=== PATIENT | male | born 1960 | race Caucasian/White ===

== ENCOUNTER 2017-07-17 18:15 | Observation (INO) | payer SELFPAY ==
[2017-07-17] MEDS ORDERED: BABY ASPIRIN 81 MG CHEW PO ONE (18:29)
--- NOTE | 2017-07-17 18:32 | ERPHSYRPT ---
<JUWAN CERVANTES - Last Filed: 07/17/17 18:33> - History of Present Illness Time Seen by Provider: 07/17/17 18:30 Historian: patient Patient Subjective Stated Complaint: pain in left upper chest that felt like a muscle spasm Triage Nursing Assessment: Pt A&O x3, stated that he had pain in his left upper chest, lungs clear, normal sinus rhythm, no edema, pulses normal, vitals wnl, denies pain at this time, afebrile, Physician History: mild to mod off and on left chest pain pressure today, gone now, nonrad, + shortness of breath, no fever, speech fluent Allergies/Adverse Reactions: No Known Drug Allergies Allergy (Verified 07/17/17 18:28) Home Medications: Lisinopril [Zestril] 1.25 mg PO UD PRN 07/17/17 [History] Hx Tetanus, Diphtheria Vaccination/Date Given: Yes (up to date) Hx Influenza Vaccination/Date Given: No Hx Pneumococcal Vaccination/Date Given: No - Review of Systems Constitutional: No Fever Eyes: No Eye Redness Ears, Nose, & Throat: No Symptoms Respiratory: Dyspnea Cardiac: Chest Pain Abdominal/Gastrointestinal: No Abdominal Pain Musculoskeletal: No Back Pain Skin: No Rash Neurological: No Dizziness - Past Medical History Pertinent Past Medical History: Yes Cardiac History: Hypertension GI Medical History: GERD, Other History: No Pertinent History Psycho-Social History: No Pertinent History Male Reproductive Disorders: No Pertinent History - Past Surgical History Past Surgical History: Yes Gastrointestinal: Cholecystectomy Musculoskeletal: Orthopedic Surgery - Social History Smoking Status: Never smoker Exposure to second hand smoke: No Drug Use: none Patient Lives Alone: No - Nursing Vital Signs Nursing Vital Signs: Initial Vital Signs Temperature 98.4 F 07/17/17 18:17 Pulse Rate 79 07/17/17 18:17 Blood Pressure 135/87 07/17/17 18:17 O2 Sat by Pulse Oximetry 95 07/17/17 18:17 Pain Scale Pain Intensity 0 - Physical Exam General Appearance: no apparent distress Eye Exam: PERRL/EOMI Ears, Nose, Throat Exam: normal ENT inspection Neck Exam: normal inspection Respiratory Exam: normal breath sounds, lungs clear, No chest tenderness Cardiovascular Exam: regular rate/rhythm Gastrointestinal/Abdomen Exam: soft, No tenderness Extremity Exam: normal inspection, No swelling Neurologic Exam: alert, oriented x 3, cooperative Skin Exam: normal color, warm, dry SpO2 Interpretation: normal SpO2: 95 Oxygen Delivery: Room Air Ordered Tests: Active Orders 24 hr Category Date Time Status Paint Line Supervisor STAT Care 07/17/17 18:29 Active EKG-ER Only STAT Care 07/17/17 18:29 Active IV Insertion STAT Care 07/17/17 18:29 Active CHEST 1 VIEW (PORTABLE) Stat Exams 07/17/17 18:53 Taken CBC W DIFF Stat Lab 07/17/17 18:30 Completed CMP Stat Lab 07/17/17 18:30 Completed D-DIMER QUANTITATION Stat Lab 07/17/17 18:30 Completed NT PRO BNP Stat Lab 07/17/17 18:30 Completed PROTIME WITH INR Stat Lab 07/17/17 18:30 Completed TROPONIN Q3H Lab 07/17/17 18:30 Completed TROPONIN Q3H Lab 07/17/17 21:30 Ordered TROPONIN Q3H Lab 07/18/17 00:30 Ordered TROPONIN Q3H Lab 07/18/17 03:30 Ordered TROPONIN Q3H Lab 07/18/17 06:30 Ordered Medication Summary Discontinued Medications Generic Name Dose Route Start Last Admin Trade Name Freq PRN Reason Stop Dose Admin Aspirin 324 mg 07/17/17 18:29 07/17/17 18:34 Baby Aspirin 81 Mg Chew PO 07/17/17 18:30 324 mg STAT ONE Administration Aspirin Confirm 07/17/17 18:35 Baby Aspirin 81 Mg Chew Administered 07/17/17 18:36 Dose 324 mg .ROUTE .STSureDone-MED ONE Lab/Rad Data: Laboratory Result Diagrams 07/17/17 18:30 07/17/17 18:30 Laboratory Results 07/17/17 07/17/17 07/17/17 Range/Units 18:30 18:30 18:30 WBC (4.0-10.5) K/mm3 RBC (4.1-5.6) M/mm3 Hgb (12.5-18.0) gm/dl Hct (42-50) % MCV (78-100) fl MCH (26-32) pg MCHC (32-36) g/dl RDW (11.5-14.0) % Plt Count (150-450) K/mm3 MPV (6-9.5) fl Gran % (36.0-66.0) % Eos # (Auto) (0-0.5) Absolute Lymphs (auto) (1.0-4.6) Absolute Monos (auto) (0.0-1.3) Lymphocytes % (24.0-44.0) % Monocytes % (0.0-12.0) % Eosinophils % (0.00-5.0) % Basophils % (0.0-0.4) % Absolute Granulocytes (1.4-6.9) Basophils # (0-0.4) PT 12.4 (8.83-12.87) SECONDS INR 1.07 (0.8-3.0) D-Dimer < 215 L (215-500) ng/mL Sodium 142 (137-145) mmol/L Potassium 3.8 (3.5-5.1) mmol/L Chloride 107 (98-107) mmol/L Carbon Dioxide 26 (22-30) mmol/L Anion Gap 13.2 (5-15) MEQ/L BUN 15 (9-20) mg/dL Creatinine 0.91 (0.66-1.25) mg/dL Estimated GFR > 60.0 ML/MIN Glucose 102 (74-106) mg/dL Calcium 9.1 (8.4-10.2) mg/dL Total Bilirubin 0.60 (0.2-1.3) mg/dL AST 32 (17-59) U/L ALT 40 (0-50) U/L Alkaline Phosphatase 57 (38-126) U/L Troponin I < 0.012 (0.000-0.034) ng/mL NT-Pro-B Natriuret Pep 66.4 (0-900) pg/mL Serum Total Protein 7.2 (6.3-8.2) g/dL Albumin 4.0 (3.5-5.0) g/dL 07/17/17 Range/Units 18:30 WBC 6.5 (4.0-10.5) K/mm3 RBC 4.83 (4.1-5.6) M/mm3 Hgb 14.9 (12.5-18.0) gm/dl Hct 43.2 (42-50) % MCV 89.4 (78-100) fl MCH 30.8 (26-32) pg MCHC 34.5 (32-36) g/dl RDW 12.8 (11.5-14.0) % Plt Count 174 (150-450) K/mm3 MPV 9.9 H (6-9.5) fl Gran % 63.3 (36.0-66.0) % Eos # (Auto) 0.09 (0-0.5) Absolute Lymphs (auto) 1.79 (1.0-4.6) Absolute Monos (auto) 0.49 (0.0-1.3) Lymphocytes % 27.5 (24.0-44.0) % Monocytes % 7.5 (0.0-12.0) % Eosinophils % 1.4 (0.00-5.0) % Basophils % 0.3 (0.0-0.4) % Absolute Granulocytes 4.11 (1.4-6.9) Basophils # 0.02 (0-0.4) PT (8.83-12.87) SECONDS INR (0.8-3.0) D-Dimer (215-500) ng/mL Sodium (137-145) mmol/L Potassium (3.5-5.1) mmol/L Chloride (98-107) mmol/L Carbon Dioxide (22-30) mmol/L Anion Gap (5-15) MEQ/L BUN (9-20) mg/dL Creatinine (0.66-1.25) mg/dL Estimated GFR ML/MIN Glucose (74-106) mg/dL Calcium (8.4-10.2) mg/dL Total Bilirubin (0.2-1.3) mg/dL AST (17-59) U/L ALT (0-50) U/L Alkaline Phosphatase (38-126) U/L Troponin I (0.000-0.034) ng/mL NT-Pro-B Natriuret Pep (0-900) pg/mL Serum Total Protein (6.3-8.2) g/dL Albumin (3.5-5.0) g/dL - Progress Progress Note: 07/17/17 18:[address] Welch at 19:00 - Departure Clinical Impression: Chest pain Condition: Stable Referrals: DARNELL SINGH [CONSULTING PHYSICIAN] - <LAURA WELCH - Last Filed: 07/17/17 19:40> - History of Present Illness Timing/Duration: today Activities at Onset: rest Quality: pressure Location: substernal Severity of Pain-Max: moderate Severity of Pain-Current: none Modifying Factors: Improves With: nothing Associated Symptoms: denies symptoms Prior Chest Pain/Cardiac Workup: no prior chest pain Nitro Today/Relief: no nitro taken today Aspirin Treatment Today: 81 mg x 4, provided by ED - Radiology Exams Chest X-ray Interpretation: Interpreted by me, Negative - Progress Progress: improved Air Movement: good Progress Note: 07/17/17 19:15 Pt care discussed and care accepted from Dr Cervantes at 19:00. Blood Culture(s) Obtained: No Antibiotics given: No Discussed with : Dylan Will see patient in: hospital (observation) Counseled pt/family regarding: lab results, diagnosis, rad results - Departure Time of Disposition: 19:36 Departure Disposition: Observation (per Dr Richardson) Critical Care Time: No
[2017-07-17] MEDS ORDERED: BABY ASPIRIN 81 MG CHEW ONE (18:35)
[2017-07-17 18:45] LABS: BASOPHIL % 0.3 % (0.0-0.4); Basophil (Absolute #) 0.02 (0-0.4); Eosinophil % 1.4 % (0.00-5.0); Eosinophil (Absolute #) 0.09 (0-0.5); Granulocyte Absolute (ANC) 4.11 (1.4-6.9); Granulocytes % 63.3 % (36.0-66.0); Hematocrit 43.2 % (42-50); Hemoglobin 14.9 gm/dl (12.5-18.0); Lymphocyte (Absolute #) 1.79 (1.0-4.6); Lymphocytes % 27.5 % (24.0-44.0); Mean Cell Volume 89.4 fl (78-100); Mean Corpuscular Hemoglobin 30.8 pg (26-32); Mean Corpuscular Hgb Concent. 34.5 g/dl (32-36); Mean Platelet Volume 9.9 fl (6-9.5); Monocyte (Absolute #) 0.49 (0.0-1.3); Monocytes % 7.5 % (0.0-12.0); Platelet Count 174 K/mm3 (150-450); Red Blood Count 4.83 M/mm3 (4.1-5.6); Red Cell Distribution Width 12.8 % (11.5-14.0); White Blood Count 6.5 K/mm3 (4.0-10.5)
[2017-07-17 18:50] LABS: INR 1.07 (0.8-3.0)
[2017-07-17 18:54] LABS: D-DIMER QUANTITATION < 215 ng/mL (215-500)
[2017-07-17 18:55] LABS: ALKALINE PHOSPHATASE 57 U/L (38-126); ANION GAP 13.2 MEQ/L (5-15); BLOOD UREA NITROGEN 15 mg/dL (9-20); CHLORIDE 107 mmol/L (98-107); Calcium 9.1 mg/dL (8.4-10.2); Carbon Dioxide 26 mmol/L (22-30); Creatinine 1 0.91 mg/dL (0.66-1.25); Glucose 102 mg/dL (74-106); Potassium 3.8 mmol/L (3.5-5.1); SGOT/AST 32 U/L (17-59); SGPT/ALT 40 U/L (0-50); SODIUM 142 mmol/L (137-145); Total Protein 7.2 g/dL (6.3-8.2)
[2017-07-17 19:04] LABS: NT PRO BNP 66.4 pg/mL (0-900)
[2017-07-17] MEDS ORDERED: TYLENOL 325 MG PO PRN (20:09)
[2017-07-17] MEDS ORDERED: Zofran 4 MG/2 ML VIAL IV PRN (20:09)
[2017-07-17] MEDS ORDERED: MAALOX ES 30 ML UNIT DOSE PO PRN (20:09)
[2017-07-17] MEDS ORDERED: MILK OF MAGNESIA 30 ML PO PRN (20:09)
[2017-07-17] MEDS ORDERED: Senokot-S Tablet PO PRN (20:09)
[2017-07-18 07:03] VITALS: BP 152/65; PULSE 55; O2SAT 95
--- NOTE | 2017-07-18 08:38 | XRAY ---
Indication: Chest pain. Comparison: November 11, 2013. Portable apical lordotic chest less inflated and remains clear again with a few incidental calcified granulomas. Heart is not enlarged. Bony thorax intact again with minimal degenerative changes and old proximal left humeral fracture. Impression: Nonacute chest with chronic features.
[2017-07-18] MEDS ORDERED: LISINOPRIL 1.25 MG PO PRN (08:47)
--- NOTE | 2017-07-18 08:50 | PCM.SSS ---
History of Present Illness - Chief Complaint Chief Complaint: Chest Pain History of Present Illness: is a 57 year old male with no local MD who presented to ER with CP. He was sitting outside and started feeling a cramp/pressure in L chest, 8/ 10, non radiating, with no associated diaphoresis, nausea, SOB, or palpitations. The pain resolved by the time he got to the ER. Has a hx cardiac workup and sees Dr. Esquivel for recurrent sx of hypotension when active after a large meal. Pt has never been a smoker. He is unsure of any family hx because he is adopted. - Review of Systems Cardiac: Chest Pain Abdominal/Gastrointestinal: Diarrhea (recurrent) Musculoskeletal: Injury (RLE pain from injury years ago) Neurological: Dizziness (chronic recurrent after large meal with activity) Psychological: No Anxiety, No Depression, No Suicidal Ideations All Other Systems: Reviewed and Negative Medications & Allergies Home Medications: Home Medication List Lisinopril [Zestril] 1.25 mg PO UD PRN 07/17/17 [History Confirmed 07/17/17] Allergies/Adverse Reactions: Allergies Allergy/AdvReac Type Severity Reaction Status Date / Time No Known Drug Allergies Allergy Verified 07/17/17 18:28 - Past Medical History Past Medical History: Yes Neurological History: No Pertinent History ENT History: No Pertinent History Cardiac History: Hypertension Respiratory History: No Pertinent History Endocrine Medical History: No Pertinent History Musculoskelatal History: Other GI Medical History: GERD, Other History: No Pertinent History Pyscho-Social History: No Pertinent History Male Reproductive Disorders: No Pertinent History Comment: chronic pain from old injury - Past Surgical History Past Surgical History: Yes Neuro Surgical History: No Pertinent History Cardiac History: No Pertinent History Respiratory Surgery: No Pertinent History GI Surgical History: Cholecystectomy Genitourinary Surgical Hx: No Pertinent History Musculskeletal Surgical Hx: Orthopedic Surgery Male Surgical History: No Pertinent History Other Surgical History: left shoulder and left knee surgery - Social History Smoking Status: Never smoker Exposure to second hand smoke: No Alcohol: None Drug Use: none - Physical Exam Vital Signs: Vital Signs - 24 hr Temp Pulse Resp BP Pulse Ox 07/18/17 07:02 97.8 F 55 L 18 152/65 95 07/18/17 04:00 97.8 F 52 L 12 135/79 96 07/18/17 00:00 98.4 F 56 L 18 119/66 95 07/17/17 21:21 98.1 F 54 L 16 138/83 97 07/17/17 18:35 95 07/17/17 18:17 98.4 F 79 135/87 95 General Appearance: no apparent distress, alert, obese Neurologic Exam: oriented x 3, cooperative Eye Exam: eyes nml inspection Ears, Nose, Throat Exam: moist mucous membranes Neck Exam: normal inspection, non-tender, No lymphadenopathy Respiratory Exam: normal breath sounds, lungs clear, No crackles/rales, No rhonchi, No wheezing Cardiovascular Exam: regular rate/rhythm, normal heart sounds, No murmur Gastrointestinal/Abdomen Exam: soft, normal bowel sounds, No tenderness, No distention, No mass, No guarding, No rebound Back Exam: normal inspection, No rash Extremity Exam: normal inspection, No pedal edema, No swelling Skin Exam: normal color, warm, dry, No rash Results - Labs Lab/Micro Results: Lab Results-Last 24 Hours 07/17/17 07/18/17 07/18/17 Range/Units 21:40 01:00 03:55 Troponin I < 0.012 < 0.012 < 0.012 (0.000-0.034) ng/mL Triglycerides (30-150) mg/dL Cholesterol (50-200) mg/dL LDL Cholesterol (30-100) mg/dL HDL Cholesterol (40-60) mg/dL Heart Disease Risk Ratio 07/18/17 07/18/17 Range/Units 03:55 06:40 Troponin I < 0.012 (0.000-0.034) ng/mL Triglycerides 176 H (30-150) mg/dL Cholesterol 149 (50-200) mg/dL LDL Cholesterol 83 (30-100) mg/dL HDL Cholesterol 30 L (40-60) mg/dL Heart Disease Risk Ratio 5.0 - Other Procedures and Tests Respiratory Therapy 07/19/17 05:00 EKG DAILY 07/20/17 05:00 EKG DAILY 07/21/17 05:00 EKG DAILY Assessment/Plan (1) Chest pain Current Visit: Yes Status: Acute Qualifiers: Chest pain type: chest pain on breathing Qualified Code(s): R07.1 - Chest pain on breathing; R07.81 - Pleurodynia Assessment & Plan: Ruled out for MD wiht neg troponins x 5. Will schedule outpatient cardiolyte lexiscan (as pt has injury of lower extermity, cannot do treadmill). Code(s): R07.9 - CHEST PAIN, UNSPECIFIED (2) Hypertension Current Visit: Yes Status: Acute Qualifiers: Hypertension type: essential hypertension Qualified Code(s): I10 - Essential (primary) hypertension Assessment & Plan: treated with 1/4 pill of 2.5mg lisinopril by Dr. Esquivel; any more and he gets more hypotensive after eating. Code(s): I10 - ESSENTIAL (PRIMARY) HYPERTENSION (3) Leg injury Current Visit: Yes Status: Acute Qualifiers: Encounter type: subsequent encounter Laterality: left Qualified Code(s): S89.92XD - Unspecified injury of left lower leg, subsequent encounter Assessment & Plan: L leg, remote injury from when a building fell on him. Code(s): S89.90XA - UNSPECIFIED INJURY OF UNSPECIFIED LOWER LEG, [facility] Summary - Hospital Course Hospital Course: Pt is 57 yo male with no local MD admitted through ER with CP. MD ruled out wiht 5 negative troponins. EKG no acute changes, NSR. Will f/u with outpatient stress test, lexiscan cardiolyte. Will f/u with Dr. Martin outpatient. - Vitals & Intake/Output Vital Signs: Vital Signs Temperature 97.8 F 07/18/17 07:02 Pulse Rate 55 L 07/18/17 07:02 Respiratory Rate 18 07/18/17 07:02 Blood Pressure 152/65 07/18/17 07:02 O2 Sat by Pulse Oximetry 95 07/18/17 07:02 Intake & Output: Intake & Output 07/15/17 07/16/17 07/17/17 07/18/17 11:59 11:59 11:59 11:59 Intake Total 1320 Balance 1320 Weight 125.9 kg - Lab Result Diagrams: 07/17/17 18:30 07/17/17 18:30 Lab Results-Last 24 Hrs: Lab Results-Last 24 Hours 07/17/17 07/18/17 07/18/17 Range/Units 21:40 01:00 03:55 Troponin I < 0.012 < 0.012 < 0.012 (0.000-0.034) ng/mL Triglycerides (30-150) mg/dL Cholesterol (50-200) mg/dL LDL Cholesterol (30-100) mg/dL HDL Cholesterol (40-60) mg/dL Heart Disease Risk Ratio 07/18/17 07/18/17 Range/Units 03:55 06:40 Troponin I < 0.012 (0.000-0.034) ng/mL Triglycerides 176 H (30-150) mg/dL Cholesterol 149 (50-200) mg/dL LDL Cholesterol 83 (30-100) mg/dL HDL Cholesterol 30 L (40-60) mg/dL Heart Disease Risk Ratio 5.0 - Procedures and Test Procedures and Tests throughout Hospitalization: Therapy Orders & Screens 07/18/17 02:19 EKG ROUTINE Comment: Diagnosis: chest pain 07/19/17 05:00 EKG DAILY Comment: Diagnosis: chest pain 07/20/17 05:00 EKG DAILY Comment: Diagnosis: chest pain 07/21/17 05:00 EKG DAILY Comment: Diagnosis: chest pain - Discharge Disposition: Home, Self-Care Condition: Good Prescriptions: Continue Lisinopril [Zestril] 1.25 mg PO UD PRN PRN Reason: Hypertension Follow up with: MARY MARTIN MD [ACTIVE STAFF] - 07/26/17 1:45 pm
[2017-07-18] MEDS ORDERED: MEDICATION INTERVENTION MC SCH (09:00)
[2017-07-18] MEDS ORDERED: Ecotrin 325 MG PO SCH (10:00)
== END 2017-07-18 09:55 | disposition home or self-care (01) ==
LOC: ED 18:15 → MED SURG 20:01
PROVIDERS: ADMIT Family Medicine; ATTEND Family Medicine
DX: R07.1 Chest pain on breathing (principal); I10 Essential (primary) hypertension; S89.92XD Unspecified injury of left lower leg, subsequent encounter
CPT/HCPCS: 36000; 36415; 71045; 80053; 80061; 83721; 83880; 84484; 85025; 85379; 85610; 93005; 93041; 93268; 99285; A9270-GY; G0378

== ENCOUNTER 2020-08-11 12:24 | Emergency (ER) | payer SELFPAY ==
[2020-08-11 12:43] VITALS: O2SAT 97
--- NOTE | 2020-08-11 13:26 | ERPHSYRPT ---
- History of Present Illness Time Seen by Provider: 08/11/20 12:26 Source: patient Exam Limitations: no limitations Patient Subjective Stated Complaint: to er c/o high bp x24 hours states he is taking bp at home with wrist bp monitor. 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 Patient report he was working outside in the yard and felt little weak yesterday and noticed his blood pressure was elevated. This morning he woke up and is feeling much better at his baseline but his blood pressure is consistently higher. Denies any headache, blurry vision, chest pain palpitations or shortness of breath. No abdominal pain nausea or vomiting. Denies any focal numbness tingling or weakness. On arrival his blood pressure is in 120s systolic while his machine is reading 220s. Timing/Duration: day(s) (1), constant, worse Severity: moderate Modifying Factors: Worsens With: movement Associated Symptoms: denies symptoms Allergies/Adverse Reactions: No Known Drug Allergies Allergy (Verified 08/11/20 12:43) Home Medications: Hydralazine HCl 10 mg PO UD PRN 08/11/20 [History] Metformin HCl 500 mg [Glucophage 500 MG] 500 mg PO BIDWM 08/11/20 [ History] Phentermine HCl 37.5 mg PO DAILY 08/11/20 [History] Hx Tetanus, Diphtheria Vaccination/Date Given: Yes (up to date) Hx Influenza Vaccination/Date Given: No Hx Pneumococcal Vaccination/Date Given: No Travel Risk - International Travel Have you traveled outside of the country in past 3 weeks: No - Coronavirus Screening Are you exhibiting any of the following symptoms?: No Close contact with a COVID-19 positive Pt in past 14-21 Days: No - Vaccine Status Have you recieved a Covid-19 vaccination: No - Review of Systems Constitutional: No Symptoms Eyes: No Symptoms Ears, Nose, & Throat: No Symptoms Respiratory: No Symptoms Cardiac: No Symptoms Abdominal/Gastrointestinal: No Symptoms Genitourinary Symptoms: No Symptoms Musculoskeletal: No Symptoms Skin: No Symptoms Neurological: No Symptoms Psychological: No Symptoms Hematologic/Lymphatic: No Symptoms Immunological/Allergic: No Symptoms - Past Medical History Pertinent Past Medical History: Yes Neurological History: No Pertinent History, Other ENT History: No Pertinent History Cardiac History: Hypertension Respiratory History: No Pertinent History Endocrine Medical History: No Pertinent History Musculoskeletal History: Other GI Medical History: GERD, Other History: No Pertinent History Psycho-Social History: No Pertinent History Male Reproductive Disorders: No Pertinent History Other Medical History: Pure autonomic failure sees [facility] - Past Surgical History Past Surgical History: Yes Neuro Surgical History: No Pertinent History Cardiac: No Pertinent History Respiratory: No Pertinent History Gastrointestinal: Cholecystectomy Genitourinary: No Pertinent History Musculoskeletal: Orthopedic Surgery Male Surgical History: No Pertinent History Other Surgical History: left shoulder and left knee surgery - Social History Smoking Status: Never smoker Exposure to second hand smoke: No Drug Use: none Patient Lives Alone: No - Nursing Vital Signs Nursing Vital Signs: Initial Vital Signs Temperature 98.2 F 08/11/20 12:34 Pulse Rate 85 08/11/20 12:34 Respiratory Rate 16 08/11/20 12:34 Blood Pressure 123/75 08/11/20 12:34 O2 Sat by Pulse Oximetry 97 08/11/20 12:34 - Physical Exam General Appearance: no apparent distress, alert Eye Exam: PERRL/EOMI Ears, Nose, Throat Exam: normal ENT inspection, TMs normal, pharynx normal Neck Exam: normal inspection, non-tender, supple, full range of motion Respiratory Exam: normal breath sounds, lungs clear Cardiovascular Exam: regular rate/rhythm, normal heart sounds Gastrointestinal/Abdomen Exam: soft, normal bowel sounds, No tenderness Back Exam: normal inspection, normal range of motion Extremity Exam: normal inspection, normal range of motion Neurologic Exam: alert, oriented x 3, cooperative, insurance broker II-XII nml as tested, normal mood/affect, nml cerebellar function, nml station & gait, sensation nml, No motor deficits, No sensory deficit Skin Exam: normal color SpO2 Interpretation: normal SpO2: 97 O2 Delivery: Room Air - Progress Progress: improved Progress Note: 08/11/20 13:26 Patient blood pressure is in 140s and 130s on my evaluation and with his machine recheck it is in 220s. I believe it a mechanical error because of machine malfunctioning. Patient is asymptomatic. I offered him baseline work-up but he feels to his baseline. And has no signs of endorgan damage. He is being discharged with outpatient follow-up. Discussed signs symptoms of worsening needing return to ER which he seems understanding. Counseled pt/family regarding: diagnosis, need for follow-up - Departure Departure Disposition: Home Clinical Impression: Pure autonomic failure, No problem, feared complaint unfounded Condition: Stable Critical Care Time: No Referrals: SHEA BURTON [Primary Care Provider] - Follow Up with PCP/3 days BRONSON BRADY [ACTIVE STAFF] - Follow Up with PCP/3 days Instructions: High Blood Pressure (DC) Additional Instructions: Monitor your blood pressure regularly, keep a log and follow-up with primary care for reevaluation. Return to ER for persistent high blood pressure or if you have a headache, dizziness lightheadedness, blurry vision, chest pain palpitations shortness of breath etc.
[2020-08-11 13:30] VITALS: BP 138/94; PULSE 69
== END 2020-08-11 13:35 | disposition home or self-care (01) ==
LOC: ED 12:24
DX: G90.3 Multi-system degeneration of the autonomic nervous system (principal)
CPT/HCPCS: 99283

== ENCOUNTER 2022-11-01 06:02 | Day surgery (SDC) | payer SELFPAY ==
[~2022-11-01 06:02] MED LIST: Lactated Ringers 1,000 ML IV SCH
[2022-11-01] MEDS ORDERED: DIPRIVAN 200 MG/20 ML IV ONE ×2 (06:50→07:19)
[2022-11-01] MEDS ORDERED: ATROPINE SULFATE 1MG ONE (07:02)
[2022-11-01] MEDS ORDERED: Lactated Ringers 1,000 ML IV ONE (07:24)
[2022-11-01 07:30] VITALS: RESP 18
[2022-11-01 07:37] VITALS: O2SAT 97
[2022-11-01 07:44] VITALS: BP 134/92; PULSE 62; TEMP 97.9
--- NOTE | 2022-11-01 14:44 | OP ---
SURGERY DATE/TIME: 11/01/2022 0700 PREOPERATIVE DIAGNOSIS: Screening exam. POSTOPERATIVE DIAGNOSIS: Small polyp in the hepatic flexure. PROCEDURE: Colonoscopy with cold forceps biopsy. SURGEON: Dr. Rosado. ANESTHESIA: Medications given by anesthesia department. HISTORY: The patient is a 62-year-old white male patient presenting now for endoscopic evaluation. The patient was described the risks of the procedure including the risk of perforation, phlebitis, untoward reaction to medication, bleeding and missed lesions. The patient verbalized his understanding and desired to have the procedure performed. DESCRIPTION OF PROCEDURE: The patient was given the medications by the anesthesia department. He had continuous pulse oximetry, ECG monitoring and intermittent blood pressure monitoring during the examination. He was placed in the left lateral decubitus position. A digital rectal examination was performed and revealed normal anal sphincter tone and no masses. The flexible Olympus pediatric colonoscope was used to intubate the rectum. A view of the colon was developed sequentially to the cecum. Upon insertion and withdrawal, including a retroflex view in the rectum was noted a small polyp in the hepatic flexure which was removed using multiple passes of the cold forceps biopsy instrument. No other mucosal lesions being encountered the scope was removed from the patient who tolerated the procedure well and was sent back to OP recovery in good condition. The prep was noted to be fair to good.
== END 2022-11-01 07:50 | disposition home or self-care (01) ==
LOC: SDC 06:02
PROVIDERS: ATTEND Family Medicine
DX: Z12.11 Encounter for screening for malignant neoplasm of colon (principal); D12.3 Benign neoplasm of transverse colon; E11.9 Type 2 diabetes mellitus without complications
CPT/HCPCS: 82947; 93005; J0461; J2704

== ENCOUNTER 2023-06-13 19:43 | Observation (INO) | payer SELFPAY ==
[2023-06-13 20:16] LABS: Absolute Neutrophil Ct (ANC) 3.99 x10^3/uL (1.4-6.9); BASOPHIL % 0.3 % (0.0-0.4); Basophil (Absolute #) 0.02 x10^3/uL (0-0.4); Eosinophil % 2.1 % (0.00-5.0); Eosinophil (Absolute #) 0.13 x10^3/uL (0-0.5); Hematocrit 41.6 % (42-50); Hemoglobin 14.4 g/dL (12.5-18.0); IMMATURE GRAN # 0.03 x10^3u/L (0.00-0.03); IMMATURE GRAN % 0.5 % (0.00-0.4); Lymphocyte (Absolute #) 1.72 x10^3/uL (1.0-4.6); Lymphocytes % 27.4 % (24.0-44.0); Mean Cell Volume 88.9 fL (78-100); Mean Corpuscular Hemoglobin 30.8 pg (26-32); Mean Corpuscular Hgb Concent. 34.6 g/dL (32-36); Mean Platelet Volume 9.6 fL (7.5-11.0); Monocyte (Absolute #) 0.39 x10^3/uL (0.0-1.3); Monocytes % 6.2 % (0.0-12.0); Neutrophil % 63.5 % (36.0-66.0); Platelet Count 155 x10^3/uL (150-450); Red Blood Count 4.68 x10^6/uL (4.1-5.6); Red Cell Distribution Width 12.2 % (11.5-14.0); White Blood Count 6.3 x10^3/uL (4.0-10.5)
--- NOTE | 2023-06-13 20:16 | ERPHSYRPT ---
- History of Present Illness Time Seen by Provider: 06/13/23 20:12 Historian: patient Exam Limitations: no limitations Patient Subjective Stated Complaint: chest pressure off and on x1 week, palpitations Triage Nursing Assessment: pt ambulated into ER room 9, at bedside. Pt is alert and oriented x4. Pt c/o chest pressure off and on x1 week and also had some palpitations. Lungs clear, heart tones reg, abd lg, obese with active bs x4 quad, nontender. Pt denies any chest pain or fluttering at this time but only c/o some heaviness to the chest. Physician History: 62-year-old male presents to our ED for evaluation of chest pressure and heart palpitations. Symptoms have been intermittent for approximately 1 week. No associated nausea vomiting or diaphoresis. Patient advises that he has a past medical history significant for PAF, pure autonomic failure. Patient reports this is a progressive neurologic condition that affects his ability to autoregulate his blood pressure distress. This was reportedly diagnosed in 2018 at the [facility]. Patient reports he has is cholesterol checked regularly. Portions of this note were created with voice recognition technology. There may be grammatical, spelling, punctuation or sound alike errors Timing/Duration: today Activities at Onset: none Quality: pressure Location: substernal Chest Pain Radiation: no radiation Severity of Pain-Max: moderate Severity of Pain-Current: moderate Modifying Factors: Improves With: nothing Associated Symptoms: denies symptoms Prior Chest Pain/Cardiac Workup: no prior chest pain Nitro Today/Relief: no nitro taken today Aspirin Treatment Today: no aspirin today Allergies/Adverse Reactions: No Known Drug Allergies Allergy (Verified 11/01/22 06:20) Home Medications: Droxidopa [Northera] 300 mg PO TID 10/25/22 [History] Hx Tetanus, Diphtheria Vaccination/Date Given: Yes Hx Influenza Vaccination/Date Given: No Hx Pneumococcal Vaccination/Date Given: No Travel Risk - International Travel Have you traveled outside of the country in past 3 weeks: No - Emerging Infectious Disease Are you exhibiting symptoms associated with any current EIDs: No - Review of Systems Constitutional: No Symptoms, No Fever, No Chills Eyes: No Symptoms Ears, Nose, & Throat: No Symptoms Respiratory: No Symptoms, No Cough, No Dyspnea Cardiac: No Symptoms, No Chest Pain, No Edema, No Syncope Abdominal/Gastrointestinal: No Symptoms, No Abdominal Pain, No Nausea, No Vomiting, No Diarrhea Genitourinary Symptoms: No Symptoms, No Dysuria Musculoskeletal: No Symptoms, No Back Pain, No Neck Pain Skin: No Symptoms, No Rash Neurological: No Symptoms, No Dizziness, No Focal Weakness, No Sensory Changes Psychological: No Symptoms Endocrine: No Symptoms Hematologic/Lymphatic: No Symptoms Immunological/Allergic: No Symptoms All Other Systems: Reviewed and Negative - Past Medical History Pertinent Past Medical History: Yes Neurological History: Other ENT History: No Pertinent History Cardiac History: Hypertension Respiratory History: Sleep Apnea Endocrine Medical History: No Pertinent History Musculoskeletal History: Other GI Medical History: GERD, Gallbladder Disease, Hernia, Other History: No Pertinent History Psycho-Social History: No Pertinent History Male Reproductive Disorders: No Pertinent History Other Medical History: Pure autonomic failure used to [facility] - Past Surgical History Past Surgical History: Yes Neuro Surgical History: No Pertinent History Cardiac: No Pertinent History Respiratory: No Pertinent History Gastrointestinal: Cholecystectomy Genitourinary: No Pertinent History Musculoskeletal: Orthopedic Surgery Male Surgical History: No Pertinent History Other Surgical History: left shoulder and left knee surgery - Social History Smoking Status: Never smoker Exposure to second hand smoke: No Drug Use: none Patient Lives Alone: No - Nursing Vital Signs Nursing Vital Signs: Initial Vital Signs Temperature 97.5 F 06/13/23 19:43 Pulse Rate 64 06/13/23 19:43 Respiratory Rate 20 06/13/23 19:43 Blood Pressure 190/104 06/13/23 19:43 O2 Sat by Pulse Oximetry 98 06/13/23 19:43 Pain Scale Pain Intensity 0 - Physical Exam General Appearance: no apparent distress, alert Eye Exam: PERRL/EOMI, eyes nml inspection Ears, Nose, Throat Exam: normal ENT inspection, moist mucous membranes Neck Exam: normal inspection, non-tender, supple, full range of motion Respiratory Exam: normal breath sounds, lungs clear, airway intact, No res piratory distress Cardiovascular Exam: regular rate/rhythm, normal heart sounds, normal peripheral pulses Gastrointestinal/Abdomen Exam: soft, No tenderness, No mass Back Exam: normal inspection, No CVA tenderness, No vertebral tenderness Extremity Exam: normal inspection, normal range of motion Neurologic Exam: alert, oriented x 3, cooperative, normal mood/affect, sensation nml, No motor deficits Skin Exam: normal color, warm, dry Lymphatic Exam: No adenopathy SpO2 Interpretation: normal SpO2: 98 O2 Delivery: Room Air - Course Nursing assessment & vital signs reviewed: Yes EKG Interpreted by Me: RATE (64), Sinus Rhythm, NORMAL AXIS, NORMAL INTERVALS - Radiology Exams Chest X-ray Interpretation: Interpreted by me (Nonacute chest with chronic features) Ordered Tests: Active Orders 24 hr Category Date Time Status Tool Dispatcher STAT Care 06/13/23 20:10 Active EKG-ER Only STAT Care 06/13/23 20:09 Active Pulse Oximetry (ED) STAT Care 06/13/23 20:09 Active CBC AM.LAB Lab 06/14/23 04:00 Ordered CBC W DIFF Stat Lab 06/13/23 20:00 Completed CMP AM.LAB Lab 06/14/23 04:00 Ordered CMP Stat Lab 06/13/23 20:00 Completed D-DIMER QUANTITATIVE Stat Lab 06/13/23 20:00 Completed NT PRO BNPII Stat Lab 06/13/23 20:00 Completed TROPONIN Q4H Lab 06/13/23 20:00 Completed TROPONIN Q4H Lab 06/14/23 04:15 Ordered TROPONIN Stat Lab 06/13/23 22:51 Completed UA W/RFX UR CULTURE Stat Lab 06/13/23 20:21 Completed Transfer Order Routine Transfer 06/13/23 Ordered Medication Summary Discontinued Medications Generic Name Dose Route Start Last Admin Trade Name Valenteq PRN Reason Stop Dose Admin Aspirin 324 mg 06/13/23 20:17 06/13/23 20:21 Aspirin 81 Mg Tab.Chew PO 06/13/23 20:18 324 mg STAT ONE Administration Aspirin Confirm 06/13/23 20:21 Aspirin 81 Mg Tab.Chew Administered 06/13/23 20:22 Dose 324 mg .ROUTE .STK-MED ONE Potassium Chloride 40 meq 06/13/23 20:54 06/13/23 20:55 Potassium Chloride Tab 10 Meq Tab PO 06/13/23 20:55 40 meq STAT ONE Administration Potassium Chloride Confirm 06/13/23 20:55 Potassium Chloride Tab 10 Meq Tab Administered 06/13/23 20:56 Dose 40 meq .ROUTE .STK-MED ONE Lab/Rad Data: Laboratory Result Diagrams 06/13/23 20:00 06/13/23 20:00 Laboratory Results 06/13/23 06/13/23 06/13/23 Range/Units 22:51 20:21 20:00 WBC (4.0-10.5) x10^3/uL RBC (4.1-5.6) x10^6/uL Hgb (12.5-18.0) g/dL Hct (42-50) % MCV (78-100) fL MCH (26-32) pg MCHC (32-36) g/dL RDW (11.5-14.0) % Plt Count (150-450) x10^3/uL MPV (7.5-11.0) fL Gran % (36.0-66.0) % Immature Gran % (Auto) (0.00-0.4) % Nucleat RBC Rel Count (0.00-0.1) % Eos # (Auto) (0-0.5) x10^3/uL Immature Gran # (Auto) (0.00-0.03) x10^3u/L Absolute Lymphs (auto) (1.0-4.6) x10^3/uL Absolute Monos (auto) (0.0-1.3) x10^3/uL Absolute Nucleated RBC (0.00-0.01) x10^3u/L Lymphocytes % (24.0-44.0) % Monocytes % (0.0-12.0) % Eosinophils % (0.00-5.0) % Basophils % (0.0-0.4) % Absolute Granulocytes (1.4-6.9) x10^3/uL Basophils # (0-0.4) x10^3/uL D-Dimer (0.0-0.50) mg/L Sodium (135-145) mmol/L Potassium (3.5-5.1) mmol/L Chloride (98-107) mmol/L Carbon Dioxide (22-30) mmol/L Anion Gap (5-15) MEQ/L BUN (9-20) mg/dL Creatinine (0.66-1.25) mg/dL Estimated GFR ML/MIN Glucose (74-106) mg/dL Calcium (8.4-10.2) mg/dL Total Bilirubin (0.2-1.3) mg/dL AST (17-59) U/L ALT (0-50) U/L Alkaline Phosphatase (38-126) U/L Troponin I < 0.012 < 0.012 (0.000-0.033) ng/mL NT-Pro-B Natriuret Pep (<300) pg/mL Serum Total Protein (6.3-8.2) g/dL Albumin (3.5-5.0) g/dL Urine Color Yellow (Yellow) Urine Appearance Clear (Clear) Urine pH 6.0 (4.6-8.0) Ur Specific [place] <=1.005 (1.005-1.030) Urine Protein Negative (Negative) Urine Glucose (UA) Negative (Negative) mg/dL Urine Ketones Negative (Negative) Urine Blood Trace (Negative) Urine Nitrite Negative (Negative) Urine Bilirubin Negative (Negative) Urine Urobilinogen 0.2 (0.2) mg/dL Ur Leukocyte Esterase Negative (Negative) U Hyaline Cast (Auto) NONE SEEN (0-2) /LPF Urine Microscopic RBC 0-2 (0-5) /HPF Urine Microscopic WBC 0-2 (0-5) /HPF Ur Epithelial Cells None Seen (None Seen) /HPF Urine Bacteria None Seen (None Seen) /HPF Urine Culture Reflexed NO (NO) 06/13/23 06/13/23 06/13/23 Range/Units 20:00 20:00 20:00 WBC 6.3 (4.0-10.5) x10^3/uL RBC 4.68 (4.1-5.6) x10^6/uL Hgb 14.4 (12.5-18.0) g/dL Hct 41.6 L (42-50) % MCV 88.9 (78-100) fL MCH 30.8 (26-32) pg MCHC 34.6 (32-36) g/dL RDW 12.2 (11.5-14.0) % Plt Count 155 (150-450) x10^3/uL MPV 9.6 (7.5-11.0) fL Gran % 63.5 (36.0-66.0) % Immature Gran % (Auto) 0.5 H (0.00-0.4) % Nucleat RBC Rel Count 0.0 (0.00-0.1) % Eos # (Auto) 0.13 (0-0.5) x10^3/uL Immature Gran # (Auto) 0.03 (0.00-0.03) x10^3u/L Absolute Lymphs (auto) 1.72 (1.0-4.6) x10^3/uL Absolute Monos (auto) 0.39 (0.0-1.3) x10^3/uL Absolute Nucleated RBC 0.00 (0.00-0.01) x10^3u/L Lymphocytes % 27.4 (24.0-44.0) % Monocytes % 6.2 (0.0-12.0) % Eosinophils % 2.1 (0.00-5.0) % Basophils % 0.3 (0.0-0.4) % Absolute Granulocytes 3.99 (1.4-6.9) x10^3/uL Basophils # 0.02 (0-0.4) x10^3/uL D-Dimer 0.24 (0.0-0.50) mg/L Sodium 138 (135-145) mmol/L Potassium 3.3 L (3.5-5.1) mmol/L Chloride 105 (98-107) mmol/L Carbon Dioxide 24 (22-30) mmol/L Anion Gap 12.7 (5-15) MEQ/L BUN 15 (9-20) mg/dL Creatinine 0.96 (0.66-1.25) mg/dL Estimated GFR 90.5 ML/MIN Glucose 153 H (74-106) mg/dL Calcium 8.8 (8.4-10.2) mg/dL Total Bilirubin 0.60 (0.2-1.3) mg/dL AST 23 (17-59) U/L ALT 25 (0-50) U/L Alkaline Phosphatase 48 (38-126) U/L Troponin I (0.000-0.033) ng/mL NT-Pro-B Natriuret Pep 149 (<300) pg/mL Serum Total Protein 6.9 (6.3-8.2) g/dL Albumin 3.7 (3.5-5.0) g/dL Urine Color (Yellow) Urine Appearance (Clear) Urine pH (4.6-8.0) Ur Specific [place] (1.005-1.030) Urine Protein (Negative) Urine Glucose (UA) (Negative) mg/dL Urine Ketones (Negative) Urine Blood (Negative) Urine Nitrite (Negative) Urine Bilirubin (Negative) Urine Urobilinogen (0.2) mg/dL Ur Leukocyte Esterase (Negative) U Hyaline Cast (Auto) (0-2) /LPF Urine Microscopic RBC (0-5) /HPF Urine Microscopic WBC (0-5) /HPF Ur Epithelial Cells (None Seen) /HPF Urine Bacteria (None Seen) /HPF Urine Culture Reflexed (NO) - Progress Progress: improved Air Movement: good Progress Note: 62-year-old male presents emergency department for evaluation of chest pressure. Patient's heart score is 4. Vital stable. Initial troponin negative. Patient will be admitted for further evaluation and treatment. Plan of care discussed with patient. He agrees to admission [facility] for further evaluation and treatment. Management discussed with Dr. Yao Hoyos who accepts admission to observation at 11:58 PM. Complexity problem addressed is moderate acute complicated. No critical care time. Complexity of data reviewed and analyzed is extensive. Test ordered test reviewed results analyzed and correlated clinically with history and physical examination. Management discussed with hospitalist accepts admission to observation. Risk of complication and or risk of morbidity/mortality of patient management is high. Patient requires hospitalization for further evaluation and treatment. Vital stable. Time spent to admit patient is approximately 15 minutes. Plan of care established for shared decision making. No social determinants of health present. Follow-up. Portions of this note were created with voice recognition technology. There may be grammatical, spelling, punctuation or sound alike errors 06/14/23 00:04 Blood Culture(s) Obtained: No Antibiotics given: No Counseled pt/family regarding: lab results, diagnosis, rad results - Departure Departure Disposition: Observation Clinical Impression: ACS (acute coronary syndrome), Hypokalemia Condition: Stable Critical Care Time: No
[2023-06-13] MEDS: BABY ASPIRIN 81 MG CHEW PO ONE (20:21)
[2023-06-13] MEDS ORDERED: BABY ASPIRIN 81 MG CHEW ONE (20:21)
[2023-06-13 20:34] LABS: Appearance Clear (Clear); Bacteria None Seen /HPF (None Seen); Bilirubin Negative (Negative); Blood Trace (Negative); Epithelial Cells None Seen /HPF (None Seen); Glucose, Urine Negative (Negative); Hyaline Casts NONE SEEN /LPF (0-2); Ketones Negative (Negative); Leukocyte Esterase Negative (Negative); Nitrite Negative (Negative); Protein,Urine Dip Negative (Negative); RBC 0-2 /HPF (0-5); Specific Gravity <=1.005 (1.005-1.030); Urobilinogen 0.2 mg/dL (0.2); WBC 0-2 /HPF (0-5)
[2023-06-13 20:40] LABS: ALBUMIN 3.7 g/dL (3.5-5.0); ANION GAP 12.7 MEQ/L (5-15); BILIRUBIN,TOTAL 0.6 mg/dL (0.2-1.3); Calcium 8.8 mg/dL (8.4-10.2); Creatinine 1 0.96 mg/dL (0.66-1.25); EST GLOMERULAR FILTRATION RATE 90.5 ML/MIN; Potassium 3.3 mmol/L (3.5-5.1); Total Protein 6.9 g/dL (6.3-8.2)
[2023-06-13 20:46] LABS: ADD URINE CULTURE? NO (NO)
[2023-06-13] MEDS: Klor Con PO ONE (20:55)
[2023-06-13] MEDS ORDERED: Klor Con ONE (20:55)
--- NOTE | 2023-06-13 23:56 | PCM.HP ---
History of Present Illness - Chief Complaint Chief Complaint: Chest pain History of Present Illness: is a 62 year old male who presents with chest pain that has been intermittent for about 1 week. Denies fevers, chills, nausea, vomiting, diarrhea. No abdominal pain. No current chest pain. Troponin negative x 2 in the ED. - Review of Systems Constitutional: No Fever, No Chills Eyes: No Symptoms Ears, Nose, & Throat: No Symptoms Respiratory: No Cough, No Short Of Breath Cardiac: No Chest Pain, No Edema, No Syncope Abdominal/Gastrointestinal: No Abdominal Pain, No Nausea, No Vomiting, No Diarrhea Genitourinary Symptoms: No Dysuria Musculoskeletal: No Back Pain, No Neck Pain Skin: No Rash Neurological: No Dizziness, No Focal Weakness, No Sensory Changes Psychological: No Symptoms Endocrine: No Symptoms Hematologic/Lymphatic: No Symptoms Immunological/Allergic: No Symptoms Medications & Allergies Home Medications: Home Medication List Droxidopa [Northera] 300 mg PO TID 10/25/22 [History Confirmed 06/13/23] Allergies/Adverse Reactions: Allergies Allergy/AdvReac Type Severity Reaction Status Date / Time No Known Drug Allergies Allergy Verified 11/01/22 06:20 - Past Medical History Past Medical History: Yes Neurological History: Other ENT History: No Pertinent History Cardiac History: Hypertension Respiratory History: Sleep Apnea Endocrine Medical History: No Pertinent History Musculoskelatal History: Other GI Medical History: GERD, Gallbladder Disease, Hernia, Other History: No Pertinent History Pyscho-Social History: No Pertinent History Male Reproductive Disorders: No Pertinent History Comment: Pure autonomic failure [facility] - Past Surgical History Past Surgical History: Yes Neuro Surgical History: No Pertinent History Cardiac History: No Pertinent History Respiratory Surgery: No Pertinent History GI Surgical History: Cholecystectomy Genitourinary Surgical Hx: No Pertinent History Musculskeletal Surgical Hx: Orthopedic Surgery Male Surgical History: No Pertinent History Other Surgical History: left shoulder and left knee surgery - Social History Smoking Status: Never smoker Exposure to second hand smoke: No Alcohol: None Drug Use: none - Social Determinants of Health Will the patient participate in the screening: Yes Do you worry about a steady place to live?: No Do you have any problems with any of the following?: No known problems In the past 12 months,have you had to go without utilities?: No Have you or anyone in your house had to go without enough: No Transportation Issues: No Has anyone in your support network made you feel unsafe?: No - Physical Exam Vital Signs: Vital Signs - 24 hr Temp Pulse Pulse Resp BP BP Pulse Ox 06/13/23 23:00 48 L 14 176/100 92 L 06/13/23 22:30 47 L 18 173/109 93 L 06/13/23 22:00 52 L 16 182/97 95 06/13/23 21:30 52 L 14 172/95 06/13/23 21:00 58 L 19 159/94 96 06/13/23 20:31 57 L 18 165/90 94 L 06/13/23 20:17 98 06/13/23 20:09 94 L 06/13/23 20:00 86 21 181/105 94 L 06/13/23 19:51 64 06/13/23 19:47 62 17 190/104 95 06/13/23 19:43 97.5 F 64 20 190/104 98 General Appearance: no apparent distress, alert Neurologic Exam: alert, oriented x 3, cooperative, normal mood/affect, nml cerebellar function, nml station & gait, sensation nml, No motor deficits Eye Exam: PERRL/EOMI, eyes nml inspection Ears, Nose, Throat Exam: normal ENT inspection, TMs normal, pharynx normal, moist mucous membranes Neck Exam: normal inspection, non-tender, supple, full range of motion Respiratory Exam: normal breath sounds, lungs clear, No respiratory distress Cardiovascular Exam: regular rate/rhythm, normal heart sounds, normal peripheral pulses Gastrointestinal/Abdomen Exam: soft, normal bowel sounds, No tenderness, No mass Back Exam: normal inspection, normal range of motion, No CVA tenderness, No ve rtebral tenderness Extremity Exam: normal inspection, normal range of motion, pelvis stable Skin Exam: normal color, warm, dry, No rash Lymphatic Exam: No adenopathy Results - Labs Lab/Micro Results: Lab Results-Last 24 Hours 06/13/23 06/13/23 06/13/23 Range/Units 20:00 20:00 20:00 WBC 6.3 (4.0-10.5) x10^3/uL RBC 4.68 (4.1-5.6) x10^6/uL Hgb 14.4 (12.5-18.0) g/dL Hct 41.6 L (42-50) % MCV 88.9 (78-100) fL MCH 30.8 (26-32) pg MCHC 34.6 (32-36) g/dL RDW 12.2 (11.5-14.0) % Plt Count 155 (150-450) x10^3/uL MPV 9.6 (7.5-11.0) fL Gran % 63.5 (36.0-66.0) % Immature Gran % (Auto) 0.5 H (0.00-0.4) % Nucleat RBC Rel Count 0.0 (0.00-0.1) % Eos # (Auto) 0.13 (0-0.5) x10^3/uL Immature Gran # (Auto) 0.03 (0.00-0.03) x10^3u/L Absolute Lymphs (auto) 1.72 (1.0-4.6) x10^3/uL Absolute Monos (auto) 0.39 (0.0-1.3) x10^3/uL Absolute Nucleated RBC 0.00 (0.00-0.01) x10^3u/L Lymphocytes % 27.4 (24.0-44.0) % Monocytes % 6.2 (0.0-12.0) % Eosinophils % 2.1 (0.00-5.0) % Basophils % 0.3 (0.0-0.4) % Absolute Granulocytes 3.99 (1.4-6.9) x10^3/uL Basophils # 0.02 (0-0.4) x10^3/uL D-Dimer 0.24 (0.0-0.50) mg/L Sodium 138 (135-145) mmol/L Potassium 3.3 L (3.5-5.1) mmol/L Chloride 105 (98-107) mmol/L Carbon Dioxide 24 (22-30) mmol/L Anion Gap 12.7 (5-15) MEQ/L BUN 15 (9-20) mg/dL Creatinine 0.96 (0.66-1.25) mg/dL Estimated GFR 90.5 ML/MIN Glucose 153 H (74-106) mg/dL Calcium 8.8 (8.4-10.2) mg/dL Total Bilirubin 0.60 (0.2-1.3) mg/dL AST 23 (17-59) U/L ALT 25 (0-50) U/L Alkaline Phosphatase 48 (38-126) U/L Troponin I (0.000-0.033) ng/mL NT-Pro-B Natriuret Pep 149 (<300) pg/mL Serum Total Protein 6.9 (6.3-8.2) g/dL Albumin 3.7 (3.5-5.0) g/dL Urine Color (Yellow) Urine Appearance (Clear) Urine pH (4.6-8.0) Ur Specific [place] (1.005-1.030) Urine Protein (Negative) Urine Glucose (UA) (Negative) mg/dL Urine Ketones (Negative) Urine Blood (Negative) Urine Nitrite (Negative) Urine Bilirubin (Negative) Urine Urobilinogen (0.2) mg/dL Ur Leukocyte Esterase (Negative) U Hyaline Cast (Auto) (0-2) /LPF Urine Microscopic RBC (0-5) /HPF Urine Microscopic WBC (0-5) /HPF Ur Epithelial Cells (None Seen) /HPF Urine Bacteria (None Seen) /HPF Urine Culture Reflexed (NO) 06/13/23 06/13/23 06/13/23 Range/Units 20:00 20:21 22:51 WBC (4.0-10.5) x10^3/uL RBC (4.1-5.6) x10^6/uL Hgb (12.5-18.0) g/dL Hct (42-50) % MCV (78-100) fL MCH (26-32) pg MCHC (32-36) g/dL RDW (11.5-14.0) % Plt Count (150-450) x10^3/uL MPV (7.5-11.0) fL Gran % (36.0-66.0) % Immature Gran % (Auto) (0.00-0.4) % Nucleat RBC Rel Count (0.00-0.1) % Eos # (Auto) (0-0.5) x10^3/uL Immature Gran # (Auto) (0.00-0.03) x10^3u/L Absolute Lymphs (auto) (1.0-4.6) x10^3/uL Absolute Monos (auto) (0.0-1.3) x10^3/uL Absolute Nucleated RBC (0.00-0.01) x10^3u/L Lymphocytes % (24.0-44.0) % Monocytes % (0.0-12.0) % Eosinophils % (0.00-5.0) % Basophils % (0.0-0.4) % Absolute Granulocytes (1.4-6.9) x10^3/uL Basophils # (0-0.4) x10^3/uL D-Dimer (0.0-0.50) mg/L Sodium (135-145) mmol/L Potassium (3.5-5.1) mmol/L Chloride (98-107) mmol/L Carbon Dioxide (22-30) mmol/L Anion Gap (5-15) MEQ/L BUN (9-20) mg/dL Creatinine (0.66-1.25) mg/dL Estimated GFR ML/MIN Glucose (74-106) mg/dL Calcium (8.4-10.2) mg/dL Total Bilirubin (0.2-1.3) mg/dL AST (17-59) U/L ALT (0-50) U/L Alkaline Phosphatase (38-126) U/L Troponin I < 0.012 < 0.012 (0.000-0.033) ng/mL NT-Pro-B Natriuret Pep (<300) pg/mL Serum Total Protein (6.3-8.2) g/dL Albumin (3.5-5.0) g/dL Urine Color Yellow (Yellow) Urine Appearance Clear (Clear) Urine pH 6.0 (4.6-8.0) Ur Specific [place] <=1.005 (1.005-1.030) Urine Protein Negative (Negative) Urine Glucose (UA) Negative (Negative) mg/dL Urine Ketones Negative (Negative) Urine Blood Trace (Negative) Urine Nitrite Negative (Negative) Urine Bilirubin Negative (Negative) Urine Urobilinogen 0.2 (0.2) mg/dL Ur Leukocyte Esterase Negative (Negative) U Hyaline Cast (Auto) NONE SEEN (0-2) /LPF Urine Microscopic RBC 0-2 (0-5) /HPF Urine Microscopic WBC 0-2 (0-5) /HPF Ur Epithelial Cells None Seen (None Seen) /HPF Urine Bacteria None Seen (None Seen) /HPF Urine Culture Reflexed NO (NO) Assessment/Plan (1) Chest pain Current Visit: No Status: Acute Qualifiers: Assessment & Plan: 1. negative trop x 2 - one more 2. likely needs outpatient cardiac work up Code(s): R07.9 - CHEST PAIN, UNSPECIFIED Telemedicine Encounter - Telemedicine Encounter Telemedicine Encounter: The entirety of this encounter was performed via Telemedicine"
[2023-06-14 05:07] LABS: Hematocrit 42.9 % (42-50); Hemoglobin 14.4 g/dL (12.5-18.0); Mean Cell Volume 89.4 fL (78-100); Mean Corpuscular Hgb Concent. 33.6 g/dL (32-36); Mean Platelet Volume 9.4 fL (7.5-11.0); Platelet Count 143 x10^3/uL (150-450); Red Cell Distribution Width 12.2 % (11.5-14.0); White Blood Count 5.2 x10^3/uL (4.0-10.5)
[2023-06-14 05:23] LABS: ALBUMIN 3.5 g/dL (3.5-5.0); ANION GAP 10.5 MEQ/L (5-15); BILIRUBIN,TOTAL 0.7 mg/dL (0.2-1.3); Calcium 8.6 mg/dL (8.4-10.2); Creatinine 1 0.86 mg/dL (0.66-1.25); EST GLOMERULAR FILTRATION RATE 99.1 ML/MIN; Potassium 3.8 mmol/L (3.5-5.1); Total Protein 6.7 g/dL (6.3-8.2)
--- NOTE | 2023-06-14 05:29 | PCM.NOTE ---
Date and Time: 06/14/23523 Subjective Assessment: 62 year old male who presented to [facility] 06/13/23 experiencing a one week history of chest pain and admitted for observation. Troponin series has been negative. EKG NS with no ST elevation/deviation. Objective Data Vital Signs: Vital Signs - 24 hr Temp Pulse Pulse Resp BP BP Pulse Ox 06/14/23 04:00 98.7 F 46 L 15 141/83 94 L 06/14/23 02:00 98 06/14/23 01:45 97.5 F 53 L 15 135/71 97 06/14/23 00:24 98 06/14/23 00:20 98 06/14/23 00:00 53 L 13 147/101 97 06/13/23 23:30 64 14 172/97 95 06/13/23 23:00 49 L 10 L 176/100 92 L 06/13/23 22:30 47 L 18 173/109 93 L 06/13/23 22:00 52 L 16 182/97 95 06/13/23 21:30 52 L 14 172/95 06/13/23 21:00 58 L 19 159/94 96 06/13/23 20:31 57 L 18 165/90 94 L 06/13/23 20:09 94 L 06/13/23 20:00 86 21 181/105 94 L 06/13/23 19:51 64 06/13/23 19:47 62 17 190/104 95 06/13/23 19:43 97.5 F 64 20 190/104 98 Pain Assessment - Last Documented Pain Intensity 0 Intake and Output: Intake & Output 06/11/23 06/12/23 06/13/23 06/14/23 11:59 11:59 11:59 11:59 Weight 126 kg Lab Results: Lab Results-Last 24 Hours 06/13/23 06/13/23 06/13/23 Range/Units 20:00 20:00 20:00 WBC 6.3 (4.0-10.5) x10^3/uL RBC 4.68 (4.1-5.6) x10^6/uL Hgb 14.4 (12.5-18.0) g/dL Hct 41.6 L (42-50) % MCV 88.9 (78-100) fL MCH 30.8 (26-32) pg MCHC 34.6 (32-36) g/dL RDW 12.2 (11.5-14.0) % Plt Count 155 (150-450) x10^3/uL MPV 9.6 (7.5-11.0) fL Gran % 63.5 (36.0-66.0) % Immature Gran % (Auto) 0.5 H (0.00-0.4) % Nucleat RBC Rel Count 0.0 (0.00-0.1) % Eos # (Auto) 0.13 (0-0.5) x10^3/uL Immature Gran # (Auto) 0.03 (0.00-0.03) x10^3u/L Absolute Lymphs (auto) 1.72 (1.0-4.6) x10^3/uL Absolute Monos (auto) 0.39 (0.0-1.3) x10^3/uL Absolute Nucleated RBC 0.00 (0.00-0.01) x10^3u/L Lymphocytes % 27.4 (24.0-44.0) % Monocytes % 6.2 (0.0-12.0) % Eosinophils % 2.1 (0.00-5.0) % Basophils % 0.3 (0.0-0.4) % Absolute Granulocytes 3.99 (1.4-6.9) x10^3/uL Basophils # 0.02 (0-0.4) x10^3/uL D-Dimer 0.24 (0.0-0.50) mg/L Sodium 138 (135-145) mmol/L Potassium 3.3 L (3.5-5.1) mmol/L Chloride 105 (98-107) mmol/L Carbon Dioxide 24 (22-30) mmol/L Anion Gap 12.7 (5-15) MEQ/L BUN 15 (9-20) mg/dL Creatinine 0.96 (0.66-1.25) mg/dL Estimated GFR 90.5 ML/MIN Glucose 153 H (74-106) mg/dL Calcium 8.8 (8.4-10.2) mg/dL Total Bilirubin 0.60 (0.2-1.3) mg/dL AST 23 (17-59) U/L ALT 25 (0-50) U/L Alkaline Phosphatase 48 (38-126) U/L Troponin I (0.000-0.033) ng/mL NT-Pro-B Natriuret Pep 149 (<300) pg/mL Serum Total Protein 6.9 (6.3-8.2) g/dL Albumin 3.7 (3.5-5.0) g/dL Urine Color (Yellow) Urine Appearance (Clear) Urine pH (4.6-8.0) Ur Specific [place] (1.005-1.030) Urine Protein (Negative) Urine Glucose (UA) (Negative) mg/dL Urine Ketones (Negative) Urine Blood (Negative) Urine Nitrite (Negative) Urine Bilirubin (Negative) Urine Urobilinogen (0.2) mg/dL Ur Leukocyte Esterase (Negative) U Hyaline Cast (Auto) (0-2) /LPF Urine Microscopic RBC (0-5) /HPF Urine Microscopic WBC (0-5) /HPF Ur Epithelial Cells (None Seen) /HPF Urine Bacteria (None Seen) /HPF Urine Culture Reflexed (NO) 06/13/23 06/13/23 06/13/23 Range/Units 20:00 20:21 22:51 WBC (4.0-10.5) x10^3/uL RBC (4.1-5.6) x10^6/uL Hgb (12.5-18.0) g/dL Hct (42-50) % MCV (78-100) fL MCH (26-32) pg MCHC (32-36) g/dL RDW (11.5-14.0) % Plt Count (150-450) x10^3/uL MPV (7.5-11.0) fL Gran % (36.0-66.0) % Immature Gran % (Auto) (0.00-0.4) % Nucleat RBC Rel Count (0.00-0.1) % Eos # (Auto) (0-0.5) x10^3/uL Immature Gran # (Auto) (0.00-0.03) x10^3u/L Absolute Lymphs (auto) (1.0-4.6) x10^3/uL Absolute Monos (auto) (0.0-1.3) x10^3/uL Absolute Nucleated RBC (0.00-0.01) x10^3u/L Lymphocytes % (24.0-44.0) % Monocytes % (0.0-12.0) % Eosinophils % (0.00-5.0) % Basophils % (0.0-0.4) % Absolute Granulocytes (1.4-6.9) x10^3/uL Basophils # (0-0.4) x10^3/uL D-Dimer (0.0-0.50) mg/L Sodium (135-145) mmol/L Potassium (3.5-5.1) mmol/L Chloride (98-107) mmol/L Carbon Dioxide (22-30) mmol/L Anion Gap (5-15) MEQ/L BUN (9-20) mg/dL Creatinine (0.66-1.25) mg/dL Estimated GFR ML/MIN Glucose (74-106) mg/dL Calcium (8.4-10.2) mg/dL Total Bilirubin (0.2-1.3) mg/dL AST (17-59) U/L ALT (0-50) U/L Alkaline Phosphatase (38-126) U/L Troponin I < 0.012 < 0.012 (0.000-0.033) ng/mL NT-Pro-B Natriuret Pep (<300) pg/mL Serum Total Protein (6.3-8.2) g/dL Albumin (3.5-5.0) g/dL Urine Color Yellow (Yellow) Urine Appearance Clear (Clear) Urine pH 6.0 (4.6-8.0) Ur Specific [place] <=1.005 (1.005-1.030) Urine Protein Negative (Negative) Urine Glucose (UA) Negative (Negative) mg/dL Urine Ketones Negative (Negative) Urine Blood Trace (Negative) Urine Nitrite Negative (Negative) Urine Bilirubin Negative (Negative) Urine Urobilinogen 0.2 (0.2) mg/dL Ur Leukocyte Esterase Negative (Negative) U Hyaline Cast (Auto) NONE SEEN (0-2) /LPF Urine Microscopic RBC 0-2 (0-5) /HPF Urine Microscopic WBC 0-2 (0-5) /HPF Ur Epithelial Cells None Seen (None Seen) /HPF Urine Bacteria None Seen (None Seen) /HPF Urine Culture Reflexed NO (NO) Radiology Exams: Radiology Procedures Category Date Time Status CHEST 1 VIEW (PORTABLE) Stat Exams 05/01/24 00:07 Taken Assessment/Plan (1) Hypokalemia Current Visit: Yes Status: Acute Code(s): E87.6 - HYPOKALEMIA (2) Chest pain Current Visit: No Status: Acute Qualifiers: Code(s): R07.9 - CHEST PAIN, UNSPECIFIED (3) Pure autonomic failure Current Visit: No Status: Acute Code(s): G90.9 - DISORDER OF THE AUTONOMIC NERVOUS SYSTEM, UNSPECIFIED (4) Palpitations Current Visit: Yes Status: Acute Code(s): R00.2 - PALPITATIONS
--- NOTE | 2023-06-14 09:03 | XRAY ---
Indication: Pain. Comparison: July 17, 2017 Portable chest better inflated and now slightly rotated with new minimal left base subsegmental atelectasis/scarring. Stable right lung calcified granulomas. No focal infiltrate, consolidation, or large effusion. Heart borderline enlarged. Bony thorax intact again with minimal degenerative changes. Impression: Nonacute chest with chronic features.
--- NOTE | 2023-06-14 11:18 | PCM.DS ---
Discharge Summary Date of Admission: 06/14/23 00:07 Date of Discharge: 06/14/23 Admitting Physician: ANAI CARBAJAL MD Primary Care Provider: BRONSON BRADY Allergies Allergies No Known Drug Allergies Allergy (Verified 11/01/22 06:20) Hospital Summary - Hospital Course Hospital Course: 62 year old male who presented to [facility] ED 06/13/23 experiencing a one week history of chest pain and palpitations and admitted for observation. Troponin series has been negative. EKG NS with no ST elevation/deviation. On arrival he was hypokalemic which was replenished and now at baseline. Patient states he does not have chest pain, rather tightness, no longer experiencing. He has had an episode of palpitations today. Plan is to send patient home on holter monitor x 14 days with cardiac follow up. Patient has had a stress test in 2019 at [facility] with Dr. Middleton, he would like to discuss any further stress test with him. He has also seen Dr. Singh in the past and will follow up him for holter monitor results. He does have pure autonomic failure which he is treated for at the [facility]. Advised follow up. Discharge Note New Diagnosis: chest pain/palpitations/hypokalemia New Medications: none Follow Up: cardiology/pcp/neurology Latest Assessment & Plan (1) Hypokalemia Current Visit: Yes Status: Acute Code(s): E87.6 - HYPOKALEMIA -Resolved (2) Chest pain Current Visit: No Status: Acute -EKG and trop unremarkable -Holter monitor x 14 days /follow up with Dr. Singh for further evaluation - may need stress test, patient would like this to be performed at [place] if suggested Qualifiers: Code(s): R07.9 - CHEST PAIN, UNSPECIFIED (3) Pure autonomic failure -Noted, follow up with neurology as scheduled at [place] Current Visit: No Status: Acute (4) Palpitations -see CP Current Visit: Yes Status: Acute Code(s): R00.2 - PALPITATIONS I spent 35 minutes [id number] with the patient on the day of discharge performing discharge exam, discussing hospital stay and discharge instructions with patient and caregivers, preparation of discharge records, prescriptions & referral forms and addressing any questions/concerns the patient had as documented above. - Vitals & Intake/Output Vital Signs: Vital Signs Temperature 97.9 F 06/14/23 06:48 Pulse Rate 76 06/14/23 10:18 Respiratory Rate 18 06/14/23 10:18 Blood Pressure 121/74 06/14/23 10:18 O2 Sat by Pulse Oximetry 98 06/14/23 10:18 Intake & Output: Intake & Output 06/11/23 06/12/23 06/13/23 06/14/23 11:59 11:59 11:59 11:59 Intake Total 580 Output Total 410 Balance 170 Weight 126 kg - Lab Result Diagrams: 06/14/23 04:40 06/14/23 04:40 Lab Results-Last 24 Hrs: Lab Results-Last 24 Hours 06/13/23 06/13/23 06/13/23 Range/Units 20:00 20:00 20:00 WBC 6.3 (4.0-10.5) x10^3/uL RBC 4.68 (4.1-5.6) x10^6/uL Hgb 14.4 (12.5-18.0) g/dL Hct 41.6 L (42-50) % MCV 88.9 (78-100) fL MCH 30.8 (26-32) pg MCHC 34.6 (32-36) g/dL RDW 12.2 (11.5-14.0) % Plt Count 155 (150-450) x10^3/uL MPV 9.6 (7.5-11.0) fL Gran % 63.5 (36.0-66.0) % Immature Gran % (Auto) 0.5 H (0.00-0.4) % Nucleat RBC Rel Count 0.0 (0.00-0.1) % Eos # (Auto) 0.13 (0-0.5) x10^3/uL Immature Gran # (Auto) 0.03 (0.00-0.03) x10^3u/L Absolute Lymphs (auto) 1.72 (1.0-4.6) x10^3/uL Absolute Monos (auto) 0.39 (0.0-1.3) x10^3/uL Absolute Nucleated RBC 0.00 (0.00-0.01) x10^3u/L Lymphocytes % 27.4 (24.0-44.0) % Monocytes % 6.2 (0.0-12.0) % Eosinophils % 2.1 (0.00-5.0) % Basophils % 0.3 (0.0-0.4) % Absolute Granulocytes 3.99 (1.4-6.9) x10^3/uL Basophils # 0.02 (0-0.4) x10^3/uL D-Dimer 0.24 (0.0-0.50) mg/L Sodium 138 (135-145) mmol/L Potassium 3.3 L (3.5-5.1) mmol/L Chloride 105 (98-107) mmol/L Carbon Dioxide 24 (22-30) mmol/L Anion Gap 12.7 (5-15) MEQ/L BUN 15 (9-20) mg/dL Creatinine 0.96 (0.66-1.25) mg/dL Estimated GFR 90.5 ML/MIN Glucose 153 H (74-106) mg/dL Calcium 8.8 (8.4-10.2) mg/dL Total Bilirubin 0.60 (0.2-1.3) mg/dL AST 23 (17-59) U/L ALT 25 (0-50) U/L Alkaline Phosphatase 48 (38-126) U/L Troponin I (0.000-0.033) ng/mL NT-Pro-B Natriuret Pep 149 (<300) pg/mL Serum Total Protein 6.9 (6.3-8.2) g/dL Albumin 3.7 (3.5-5.0) g/dL Urine Color (Yellow) Urine Appearance (Clear) Urine pH (4.6-8.0) Ur Specific [place] (1.005-1.030) Urine Protein (Negative) Urine Glucose (UA) (Negative) mg/dL Urine Ketones (Negative) Urine Blood (Negative) Urine Nitrite (Negative) Urine Bilirubin (Negative) Urine Urobilinogen (0.2) mg/dL Ur Leukocyte Esterase (Negative) U Hyaline Cast (Auto) (0-2) /LPF Urine Microscopic RBC (0-5) /HPF Urine Microscopic WBC (0-5) /HPF Ur Epithelial Cells (None Seen) /HPF Urine Bacteria (None Seen) /HPF Urine Culture Reflexed (NO) 06/13/23 06/13/23 06/13/23 Range/Units 20:00 20:21 22:51 WBC (4.0-10.5) x10^3/uL RBC (4.1-5.6) x10^6/uL Hgb (12.5-18.0) g/dL Hct (42-50) % MCV (78-100) fL MCH (26-32) pg MCHC (32-36) g/dL RDW (11.5-14.0) % Plt Count (150-450) x10^3/uL MPV (7.5-11.0) fL Gran % (36.0-66.0) % Immature Gran % (Auto) (0.00-0.4) % Nucleat RBC Rel Count (0.00-0.1) % Eos # (Auto) (0-0.5) x10^3/uL Immature Gran # (Auto) (0.00-0.03) x10^3u/L Absolute Lymphs (auto) (1.0-4.6) x10^3/uL Absolute Monos (auto) (0.0-1.3) x10^3/uL Absolute Nucleated RBC (0.00-0.01) x10^3u/L Lymphocytes % (24.0-44.0) % Monocytes % (0.0-12.0) % Eosinophils % (0.00-5.0) % Basophils % (0.0-0.4) % Absolute Granulocytes (1.4-6.9) x10^3/uL Basophils # (0-0.4) x10^3/uL D-Dimer (0.0-0.50) mg/L Sodium (135-145) mmol/L Potassium (3.5-5.1) mmol/L Chloride (98-107) mmol/L Carbon Dioxide (22-30) mmol/L Anion Gap (5-15) MEQ/L BUN (9-20) mg/dL Creatinine (0.66-1.25) mg/dL Estimated GFR ML/MIN Glucose (74-106) mg/dL Calcium (8.4-10.2) mg/dL Total Bilirubin (0.2-1.3) mg/dL AST (17-59) U/L ALT (0-50) U/L Alkaline Phosphatase (38-126) U/L Troponin I < 0.012 < 0.012 (0.000-0.033) ng/mL NT-Pro-B Natriuret Pep (<300) pg/mL Serum Total Protein (6.3-8.2) g/dL Albumin (3.5-5.0) g/dL Urine Color Yellow (Yellow) Urine Appearance Clear (Clear) Urine pH 6.0 (4.6-8.0) Ur Specific [place] <=1.005 (1.005-1.030) Urine Protein Negative (Negative) Urine Glucose (UA) Negative (Negative) mg/dL Urine Ketones Negative (Negative) Urine Blood Trace (Negative) Urine Nitrite Negative (Negative) Urine Bilirubin Negative (Negative) Urine Urobilinogen 0.2 (0.2) mg/dL Ur Leukocyte Esterase Negative (Negative) U Hyaline Cast (Auto) NONE SEEN (0-2) /LPF Urine Microscopic RBC 0-2 (0-5) /HPF Urine Microscopic WBC 0-2 (0-5) /HPF Ur Epithelial Cells None Seen (None Seen) /HPF Urine Bacteria None Seen (None Seen) /HPF Urine Culture Reflexed NO (NO) 06/14/23 06/14/23 06/14/23 Range/Units 04:40 04:40 04:40 WBC 5.2 (4.0-10.5) x10^3/uL RBC 4.80 (4.1-5.6) x10^6/uL Hgb 14.4 (12.5-18.0) g/dL Hct 42.9 (42-50) % MCV 89.4 (78-100) fL MCH 30.0 (26-32) pg MCHC 33.6 (32-36) g/dL RDW 12.2 (11.5-14.0) % Plt Count 143 L (150-450) x10^3/uL MPV 9.4 (7.5-11.0) fL Gran % (36.0-66.0) % Immature Gran % (Auto) (0.00-0.4) % Nucleat RBC Rel Count (0.00-0.1) % Eos # (Auto) (0-0.5) x10^3/uL Immature Gran # (Auto) (0.00-0.03) x10^3u/L Absolute Lymphs (auto) (1.0-4.6) x10^3/uL Absolute Monos (auto) (0.0-1.3) x10^3/uL Absolute Nucleated RBC (0.00-0.01) x10^3u/L Lymphocytes % (24.0-44.0) % Monocytes % (0.0-12.0) % Eosinophils % (0.00-5.0) % Basophils % (0.0-0.4) % Absolute Granulocytes (1.4-6.9) x10^3/uL Basophils # (0-0.4) x10^3/uL D-Dimer (0.0-0.50) mg/L Sodium 139 (135-145) mmol/L Potassium 3.8 (3.5-5.1) mmol/L Chloride 106 (98-107) mmol/L Carbon Dioxide 27 (22-30) mmol/L Anion Gap 10.5 (5-15) MEQ/L BUN 13 (9-20) mg/dL Creatinine 0.86 (0.66-1.25) mg/dL Estimated GFR 99.1 ML/MIN Glucose 115 H (74-106) mg/dL Calcium 8.6 (8.4-10.2) mg/dL Total Bilirubin 0.70 (0.2-1.3) mg/dL AST 22 (17-59) U/L ALT 24 (0-50) U/L Alkaline Phosphatase 47 (38-126) U/L Troponin I < 0.012 (0.000-0.033) ng/mL NT-Pro-B Natriuret Pep (<300) pg/mL Serum Total Protein 6.7 (6.3-8.2) g/dL Albumin 3.5 (3.5-5.0) g/dL Urine Color (Yellow) Urine Appearance (Clear) Urine pH (4.6-8.0) Ur Specific [place] (1.005-1.030) Urine Protein (Negative) Urine Glucose (UA) (Negative) mg/dL Urine Ketones (Negative) Urine Blood (Negative) Urine Nitrite (Negative) Urine Bilirubin (Negative) Urine Urobilinogen (0.2) mg/dL Ur Leukocyte Esterase (Negative) U Hyaline Cast (Auto) (0-2) /LPF Urine Microscopic RBC (0-5) /HPF Urine Microscopic WBC (0-5) /HPF Ur Epithelial Cells (None Seen) /HPF Urine Bacteria (None Seen) /HPF Urine Culture Reflexed (NO) - Radiology Exams Ordered Rad Exams-Entire Visit: Radiology Procedures Category Date Time Status CHEST 1 VIEW (PORTABLE) Stat Exams 06/14/23 00:07 Completed - Procedures and Test Procedures and Tests throughout Hospitalization: Therapy Orders & Screens 06/14/23 11:06 [place] 7-14 Day Holter ONCE Comment: Diagnosis: ACS Discharge Exam General Appearance: no apparent distress Neurologic Exam: alert, oriented x 3, cooperative Eye Exam: PERRL Ears, Nose, Throat Exam: normal ENT inspection Neck Exam: normal inspection Respiratory Exam: normal breath sounds, lungs clear Cardiovascular Exam: regular rate/rhythm, normal heart sounds Gastrointestinal/Abdomen Exam: soft, normal bowel sounds Male Genitalia Exam: deferred Rectal Exam: deferred Back Exam: normal inspection Extremity Exam: normal inspection Final Diagnosis/Problem List - Final Discharge Diagnosis/Problem (1) Palpitations Current Visit: Yes Status: Acute Code(s): R00.2 - PALPITATIONS (2) Chest pain Current Visit: No Status: Acute Code(s): R07.9 - CHEST PAIN, UNSPECIFIED (3) Hypokalemia Current Visit: Yes Status: Acute Code(s): E87.6 - HYPOKALEMIA (4) Pure autonomic failure Current Visit: No Status: Acute Code(s): G90.9 - DISORDER OF THE AUTONOMIC NERVOUS SYSTEM, UNSPECIFIED - Discharge Disposition: Home, Self-Care Condition: Stable Prescriptions: No Action Droxidopa [Northera] 300 mg PO TID Follow up with: BRONSON BRADY MD [Primary Care Provider] - 06/22/23 3:30 pm DARNELL SINGH [CONSULTING PHYSICIAN] -
[2023-06-14 11:39] VITALS: BP 117/63; PULSE 73; RESP 16; TEMP 97.6; O2SAT 97
[2023-06-14] MEDS ORDERED: MEDICATION INTERVENTION MC SCH (11:45)
[2023-06-14] MEDS ORDERED: DROXIDOPA 300 MG PO SCH (15:00)
== END 2023-06-14 15:43 | disposition home or self-care (01) ==
LOC: ED 19:43 → MED SURG 06-14 00:07
PROVIDERS: ADMIT Student in an Organized Health Care Education/Training Program; ATTEND Student in an Organized Health Care Education/Training Program
DX: E87.6 Hypokalemia (principal); R07.9 Chest pain, unspecified; R00.2 Palpitations; G90.9 Disorder of the autonomic nervous system, unspecified; I10 Essential (primary) hypertension
CPT/HCPCS: 36415; 71045; 80053; 81001; 83880; 84484; 85025; 85027; 85379; 93005; 93041; 93246; 93306; 94760; 94762; Q3014; 93268; 99284; A9270-GY; G0378